=== PATIENT | male | born 1980 | race Caucasian/White ===

== ENCOUNTER 2018-12-28 11:23 | Outpatient (CLI) | payer BC ==
--- NOTE | 2018-12-28 12:19 | RAD ---
3 views left great toe: 12/28/2018 COMPARISON: None HISTORY: Bruising, pain FINDINGS: No fracture or dislocation. No radiopaque foreign body or subcutaneous gas. Mild degenerati ve change at the first metatarsal-phalangeal joint. IMPRESSION: No acute findings.
--- NOTE | 2018-12-28 12:20 | RAD ---
3 views right great toe: 12/28/2018 COMPARISON: None HISTORY: Pain, bruising FINDINGS: No fracture or dislocation. No radiopaque foreign body or subcutaneous gas. Mild degenerati ve change at the first metatarsophalangeal joint. IMPRESSION: No acute findings.
--- NOTE | 2018-12-28 12:20 | RAD ---
3 views left foot: 12/28/2018 COMPARISON: None HISTORY: Pain, bruising FINDINGS: No fracture or dislocation. No radiopaque foreign body or subcutaneous gas. Mild degenerati ve change noted at the first metatarsal-phalangeal joint. There is prominent enthesophyte formation at the origin of the plantar aponeurosis. IMPRESSION: No acute findings.
--- NOTE | 2018-12-28 12:21 | RAD ---
Right foot 3 views: 12/28/2018 COMPARISON: None HISTORY: Pain, bruising FINDINGS: No fracture or dislocation. No radiopaque foreign body or subcutaneous gas. Mild degenerati ve change at the first metatarsal-phalangeal joint. Prominent enthesophyte formation at the origin of the plantar aponeurosis. IMPRESSION: No acute findings.
== END 2018-12-28 11:24 | disposition home or self-care (01) ==
LOC: BICRAD 11:23
PROVIDERS: ATTEND Chiropractor Sports Physician
DX: S90.31XA Contusion of right foot, initial encounter (principal)